=== PATIENT | female | born 1980 | race Caucasian/White ===

== ENCOUNTER 2016-07-02 11:00 | Day surgery (SDC) | payer OTHER ==
--- NOTE | ~2016-07-02 | OP ---
Record Of Operation [facility] [address] [place]. [address] NAME: GIAN BROOKS : 80 STATUS : PRE SDC PAT#: [id number] AGE: 36 ADM/REG DATE : MR#: [id number] REPORT SERV DATE: 07/02/16 DICTATED BY: BRENNA RENDON DATE: 07/02/16 REPORT STATUS : Draft TRANSCRIBED BY: JO DATE: 07/02/16 DATE OF PROCEDURE: PREOPERATIVE DIAGNOSIS: Obesity. POSTOPERATIVE DIAGNOSIS: Obesity. PROCEDURE: Placement of a ReShape intragastric balloon endoscopically. SURGEON: Brenna Rendon M.D. ANESTHESIA: MAC. COMPLICATIONS: None. INDICATION FOR THE PROCEDURE: This is a 36-year-old white female with obesity with a BMI of 39.5 and a weight of 231 pounds and associated arthropathy. DESCRIPTION OF PROCEDURE: The patient was taken to the endoscopy room and after adequate IV sedation under MAC, we slide the scope through the mouth all the way down to the esophagus and stomach. She had a small hiatal hernia less than 2 cm. The rest of the stomach looked normal. The pylorus looked normal. We entered the duodenum all the way down to the second portion of the duodenum. Then, we slide the wire all the way down to the second portion of the duodenum and then removed the scope keeping the wire in place and then through the wire, we slide the ReShape intragastric balloon system all the way down into the stomach. Then, we put the scope and verified that the balloon was laying down in the greater curvature and then we proceeded to remove the wire and under direct visualization, first we inflated the proximal and then the distal balloon. Each balloon was inflated with 450 mL of saline with methylene blue. After each balloon was completely inflated, the each balloon was sealed with mineral oil and then we backed up the scope to the connector and between the introducer in the balloons and then de-attached the introducer with no problems and then re-scoped the patient and verified both balloons were in the stomach and inflated. There was no evidence of any significant injuries. The patient tolerated the procedure well without any problems. CICI Brenna Butterfield M.D. / [id number] CC: Brenna Rendon M.D.
[~2016-07-02 11:00] MED LIST: LEXAPRO20 PO; NEUR600 PO; VYVANSE30 MG PO; ZANTAC150 MG; ZYRTEC ALLGY10 MG PO
[2016-12-31] MEDS ORDERED: PRILO PO (10:08)
== END 2016-07-02 23:59 | disposition home or self-care (01) ==
LOC: MSC 11:00
PROVIDERS: Surgery
PROC: 0DV68DZ Restriction of Stomach with Intraluminal Device, Via Natural or Artificial Opening Endoscopic (ICD-10-PCS; principal; 2016-07-02 13:15)
DX: E66.9 Obesity, unspecified (principal)
CPT/HCPCS: 84703; A9270-GY; C1725; J2405; J2550